=== PATIENT | female | born 1955 | race African-American/Black ===

== ENCOUNTER → 2019-10-04 | Outpatient (CLI) | payer OTHER ==
[~2019-10-04] MED LIST: ADVAIR 250-501 EACH IH; ADVAIR 250-501 EACH INH; ALBUTEROL2.5 MG/0.1; ANASPAZ0.125 MG SL; AVALIDE 150-121 EACH PO; B COMPLEX WITH1 EACH PO; CALCIUM 600 +1 EAC1 PO; CARAFATE 1 GM TA1 G1 GT; CEFTAZIDIM1 GM/50 ML; DOCUSATE SODIU100 MG PO; ELEMENTAL CALC600 MG PO; ESTRACE0.5 MG PO; ETODOLAC500 MG PO; FISH OIL 1,2001 EAC4 PO; FISHOIL; GLUCOPHAGE1000 MG PO; GLUCOPHAGE500 MG PO; HYDROCODON-ACE1 EAC7; HYDROCODON-ACE1 EACH PO; JANUVIA100 MG PO; K-DUR 20 MEQ T20 MEQ PO; LAMISIL250 MG PO; LASIX 20 MG TAB20 MG PO; LOSARTAN-HCTZ1 EACH PO; LOVASTATIN; MIRALAX255 GM PO; NOVOLOG100 UNIT/1; OPTIVE EYE DROP30 ML OP; OSCIMIN SL0.125 MG; OXYCONTIN CR 1010 M1 PO; PREMARIN0.9 MG PO; PRILOSEC 20 MG20 MG PO; PRILOSEC40 MG PO; SINGULAIR 10 MG10 M1 PO; VANCOMYCIN1 GM/100 M; VERAMYST10 GM NS; VERAPAMIL ER120 MG PO; VERAPAMIL HCL120 M4 PO; VITAMIN B-12100 MCG PO; VITAMIN E400 UNI6 PO; VITAMIN E400 UNIT PO; VITAMINC500 PO; ZOFRAN ODT4 MG PO
== END ==
LOC: SJCVCIMAG 14:06
DX: M79.661 Pain in right lower leg (principal); M79.89 Other specified soft tissue disorders; L81.9 Disorder of pigmentation, unspecified; E11.8 Type 2 diabetes mellitus with unspecified complications; Z79.4 Long term (current) use of insulin; Z86.718 Personal history of other venous thrombosis and embolism